=== PATIENT | male | born 1965 | race Asian ===

== ENCOUNTER 2021-11-16 10:56 | Day surgery (SDC) | payer BC, SELFPAY ==
[2021-11-16 11:16] VITALS: BMI 27.3
[2021-11-16] MEDS: LACTATED RINGERS 1000 ML 1,000 ML 100 ML IV (11:30)
[2021-11-16 11:41] VITALS: BP 125/81; PULSE 63; RESP 18; TEMP 36.3; O2SAT 97
[2021-11-16] MEDS: SODIUM CHLORIDE 0.9 % (FLUSH) 10 ML SYRINGE IVF (11:43)
[2021-11-16] MEDS: CEFAZOLIN 1 GM in 0.9 % SODIUM CHLORIDE Mini-bag 100 ML IVPB (12:30)
[2021-11-16] MEDS: BUPIVACAINE 0.25% 30 ML 4 ML INJECTION (12:55)
--- NOTE | 2021-11-16 13:06 | PM.GSPRC ---
Operative Note Date of procedure: 11/16/21 Type of Procedure: Excision left chest wall mass, 7 x 13 x 2 cm Procedure Description: After discussing the risks and benefits of the procedure, the patient signed informed consent.? The operative site was marked and the patient was brought to the operating room and placed on the operating table in supine position.? Care was taken to pad the patient's pressure points.?? The patient was then given sedation by anesthesia.?? The operative site was then prepped and draped in the usual sterile fashion.? A time-out was then performed. Local anesthetic was injected into the skin and subcutaneous tissue overlying the planned incision. An incision was made at the anterior axillary line overlying the mass. Dissection was taken down into the subcutaneous tissue using cautery. The mass was encountered. The thin fibrous capsule was incised and the large lipoma was noted. This extended posteriorly on the chest wall. It did not appear to violate the clavipectoral fascia and sat on top of the pectoralis itself anteriorly. Very carefully this was dissected free with a combination of blunt dissection and cautery to divide the wispy fibers which held it in place. This was delivered from the incision. It was measured and found to be 7 by 13 x 2 cm. This was sent to pathology. The wound was examined and again it did not appear as though the axilla was entered during the procedure. Hemostasis appeared excellent. The subcutaneous tissue was closed with 2-0 Vicryl. The dermis was then closed with 3 0 Vicryl and the skin with 4-0 Monocryl in a running subcuticular fashion. Sterile dressings were then applied. The patient tolerated the procedure well. He was woken and transported into the recovery area in stable condition. ? Findings: 2 x 7 x 13 cm fatty mass in the left chest wall Surgeon: Kristen Sam MD Estimated blood loss (mL): 5 Condition: stable Disposition: same day
[2021-11-16 13:10] VITALS: BP 117/88; PULSE 56; RESP 16; TEMP 37.1; O2SAT 97
--- NOTE | 2021-11-16 13:11 | W.ANESCHARGE ---
Anesthesia Charges Start Date/Time Anesthesia Start Date: 11/16/21 Anesthesia Start Time: 12:23 Stop Date/Time Anesthesia Stop Date: 11/16/21 Anesthesia Stop Time: 13:08 Summary Emergency: No
[2021-11-16 13:15] VITALS: BP 111/76; PULSE 49; RESP 16; O2SAT 97
[2021-11-16 13:30] VITALS: BP 128/87; PULSE 67; RESP 16; O2SAT 99
[2021-11-16 13:45] VITALS: BP 128/77; PULSE 68; RESP 16; O2SAT 99
== END 2021-11-16 14:07 | disposition home or self-care (01) ==
PROVIDERS: PCP Family Medicine; Visit Provider Surgery
PROC: (CPT 21552; principal; 2021-11-16 12:30)
DX: D17.1 Benign lipomatous neoplasm of skin and subcutaneous tissue of trunk (principal)
CPT/HCPCS: 21552; 00400; 88304; J0690; J1100; J1885; J2250; J2405; J2704; J3010; J3490; J7120